=== PATIENT | female | born 1970 | race Caucasian/White ===

== ENCOUNTER 2016-06-19 06:02 | Emergency (ER) | payer SELFPAY ==
[~2016-06-19] VITALS: Ht 172.7 cm; Wt 97.7 kg
[~2016-06-19 06:02] MED LIST: LEXA10TA PO
[2016-06-19] MEDS ORDERED: SODIUM CHLOR 0.9% 1000 ML INJ 1,000 ML IV SCH (06:07)
[2016-06-19] MEDS ORDERED: SODIUM CHLORIDE 0.9% FLUSH 10 ML FLUSH IVF PRN (06:15)
[2016-06-19] MEDS ORDERED: CLON.5 PO (06:24)
[2016-06-19 06:25] VITALS: O2SAT 98
--- NOTE | 2016-06-19 06:27 | PD ---
HPI Chief Complaint: OD/ Ingestion Time Seen by Provider: 06:07 Travel History International Travel<30 days: No Contact w/Intl Traveler<30days: No Traveled to known affect area: No History of Present Illness HPI The patient is a 45-year-old female that apparently overdosed on alcohol and 10 Flexeril about 24 hours ago. She stated she had a bad day. She apparently does have a history of depression. [facility] Past Medical History Depression: Yes Diminished Hearing: No Hypertension: Yes : 1 Para: 0 Past Surgical History Gynecologic Surgery: Yes (UTERINE ABLATION) Tonsillectomy: Yes Other Surgery: Yes (CERVICAL BIOPSY) Social History Alcohol Use: Yes (1/2 bottle daily, trying to quit.) Tobacco Use: Yes (1PPD) Substance Use: No (ALCOHOL) Allergies-Medications (Allergen,Severity, Reaction): Coded Allergies: ANTIHISTAMINE DRUGS (Verified Allergy, Severe, 06/19/16) Latex (Verified Allergy, Severe, Rash, 06/19/16) Penicillin (Verified Allergy, Severe, 06/19/16) Sulfa (Verified Allergy, Severe, Rash, 06/19/16) Reported Meds & Prescriptions Reported Meds & Active Scripts Active Reported Klonopin (Clonazepam) 0.5 Mg Tab 0.5 Mg PO TID Lexapro (Escitalopram Oxalate) 10 Mg Tab 10 Mg PO DAILY Review of Systems Except as stated in HPI: all other systems reviewed are Neg Physical Exam Narrative GENERAL: The patient is alert but slightly lethargic, oriented 3 and answers questions fairly quickly and appropriately. Her vital signs are normal. SKIN: Focused skin assessment warm/dry. HEAD: Atraumatic. Normocephalic. EYES: Pupils equal and round. No scleral icterus. No injection or drainage. ENT: No nasal bleeding or discharge. Mucous membranes pink and moist. NECK: Trachea midline. No JVD. CARDIOVASCULAR: Regular rate and rhythm. No murmur appreciated. RESPIRATORY: No accessory muscle use. Clear to auscultation. Breath sounds equal bilaterally. GASTROINTESTINAL: Abdomen soft, non-tender, nondistended. Hepatic and splenic margins not palpable. MUSCULOSKELETAL: No obvious deformities. No clubbing. No cyanosis. No edema. NEUROLOGICAL: Awake and alert. No obvious cranial nerve deficits. Motor grossly within normal limits. Normal speech. PSYCHIATRIC: Appropriate mood and affect; insight and judgment normal. Data Data Last Documented VS Vital Signs Date Time Temp Pulse Resp B/P Pulse Ox O2 Delivery O2 Flow Rate FiO2 06/19/16 06:30 83 98 Nasal Cannula 2 06/19/16 06:28 16 133/78 Orders Electrocardiogram (06/19/16 06:07) Complete Blood Count With Diff (06/19/16 06:07) Comprehensive Metabolic Panel (06/19/16 06:07) Creatine Kinase (Cpk) (06/19/16 06:07) Troponin I (06/19/16 06:07) Urinalysis - C+S If Indicated (06/19/16 06:07) Chest, Single Ap (06/19/16 06:07) Ecg Monitoring (06/19/16 06:07) Iv Access Insert/Monitor (06/19/16 06:07) Oximetry (06/19/16 06:07) Sodium Chloride 0.9% Flush (Ns Flush) (06/19/16 06:15) Sodium Chlor 0.9% 1000 Ml Inj (Ns 1000 M (06/19/16 06:07) Drug Screen, Random Urine (06/19/16 06:07) Alcohol (Ethanol) (06/19/16 06:07) Tylenol (Acetaminophen) (06/19/16 06:07) Beta Hcg (Quant/Titer) (06/19/16 06:07) Salicylates (Aspirin) (06/19/16 06:21) Urinary Catheter Insert/Apply (06/19/16 06:27) Labs Laboratory Tests Test 06/19/16 06/19/16 06:13 06:20 White Blood Count 9.8 TH/MM3 Red Blood Count 4.70 MIL/MM3 Hemoglobin 14.5 GM/DL Hematocrit 43.1 % Mean Corpuscular Volume 91.7 FL Mean Corpuscular Hemoglobin 30.8 PG Mean Corpuscular Hemoglobin 33.6 % Concent Red Cell Distribution Width 13.2 % Platelet Count 217 TH/MM3 Mean Platelet Volume 7.9 FL Neutrophils (%) (Auto) 75.6 % Lymphocytes (%) (Auto) 17.2 % Monocytes (%) (Auto) 6.2 % Eosinophils (%) (Auto) 0.5 % Basophils (%) (Auto) 0.5 % Neutrophils # (Auto) 7.4 TH/MM3 Lymphocytes # (Auto) 1.7 TH/MM3 Monocytes # (Auto) 0.6 TH/MM3 Eosinophils # (Auto) 0.0 TH/MM3 Basophils # (Auto) 0.0 TH/MM3 CBC Comment DIFF FINAL Differential Comment Sodium Level 140 MEQ/L Potassium Level 3.9 MEQ/L Chloride Level 104 MEQ/L Carbon Dioxide Level 28.0 MEQ/L Anion Gap 8 MEQ/L Blood Urea Nitrogen 15 MG/DL Creatinine 0.89 MG/DL Estimat Glomerular Filtration 69 ML/MIN Rate Random Glucose 84 MG/DL Calcium Level 9.5 MG/DL Total Bilirubin 0.4 MG/DL Aspartate Amino Transf 8 U/L (AST/SGOT) Alanine Aminotransferase 25 U/L (ALT/SGPT) Total Protein 7.1 GM/DL Albumin 3.4 GM/DL Ethyl Alcohol Level LESS THAN 3 MG/DL Urine Collection Type CATH Urine Color YELLOW Urine Turbidity CLEAR Urine pH 5.5 Urine Specific [place] 1.013 Urine Protein NEG mg/dL Urine Glucose (UA) NEG mg/dL Urine Ketones NEG mg/dL Urine Occult Blood NEG Urine Nitrite NEG Urine Bilirubin NEG Urine Leukocyte Esterase NEG Urine Squamous Epithelial 0-5 /hpf Cells Urine Amorphous Sediment Urine Mucus OCC /lpf Microscopic Urinalysis Comment CULT NOT INDICATED Urine Barbiturates Screen NEG Urine Amphetamines Screen NEG Urine Benzodiazepines Screen NEG Urine Cocaine Screen NEG MDM Medical Decision Making Medical Screen Exam Complete: Yes Emergency Medical Condition: Yes Medical Record Reviewed: Yes Interpretation(s) The EKG shows normal sinus rhythm with normal QRS duration and no sign of any Tri-Cyclic overdose. Differential Diagnosis Major depression, tricyclic overdose, Tylenol overdose, salicylate overdose, alcohol overdose Narrative Course Poison control was called and they wanted an EKG 2 hours after the initial EKG. The initial EKG was essentially normal regarding tricyclic overdose. The second EKG will be done at 0800. It is now 709 and the patient is transferred to Stan Chaves MD June 19, 2016 06:27
[2016-06-19 06:28] VITALS: BP 133/78; PULSE 94; RESP 16; O2SAT 94
[2016-06-19 06:28] LABS: CHLORIDE 104 MEQ/L (98-107); POTASSIUM 3.9 MEQ/L (3.5-5.1); SODIUM (NA) 140 MEQ/L (136-145)
[2016-06-19 06:32] LABS: ANION GAP 8 MEQ/L (5-15); BLOOD UREA NITROGEN 15 MG/DL (7-18)
[2016-06-19 06:32] LABS: BLOOD, URINE NEG (NEG); GLUCOSE,URINE NEG (NEG); KETONE, URINE NEG (NEG); NITRITE,URINE NEG (NEG); PH, URINE 5.5 (5.0-8.5)
[2016-06-19 06:34] LABS: AUTOMATED NEUTROPHIL # 7.4 TH/MM3 (1.8-7.7); BASOPHIL % 0.5 % (0.0-2.0); EOSINOPHIL % 0.5 % (0.0-4.0); HEMATOCRIT 43.1 % (35.0-46.0); HEMO FLAGS DIFF FINAL; LYMPH % 17.2 % (9.0-44.0); LYMPHOCYTE # 1.7 TH/MM3 (1.0-4.8); MEAN CELL VOLUME 91.7 FL (80.0-100.0); MEAN CORPUSCULAR HEMOGLOBIN 30.8 PG (27.0-34.0); MEAN CORPUSCULAR HGB CONC 33.6 % (32.0-36.0); MONO % 6.2 % (0.0-8.0); NEUT % 75.6 % (16.0-70.0); PLATELET COUNT 217 TH/MM3 (150-450); RED CELL DISTRIBUTION WIDTH 13.2 % (11.6-17.2); WHITE BLOOD COUNT 9.8 TH/MM3 (4.0-11.0)
[2016-06-19 06:35] LABS: ALT (GPT) 25 U/L (10-53); AST (GOT) 8 U/L (15-37); GLOMERULAR FILTRATION RATE 69 ML/MIN (>89)
[2016-06-19 06:37] LABS: TOTAL BILIRUBIN ADULT 0.4 MG/DL (0.2-1.0)
[2016-06-19 06:38] LABS: ALKALINE PHOSPHATASE 75 U/L (45-117)
[2016-06-19 06:40] LABS: BETA HCG QUANT LESS THAN 1 MIU/ML (0-5)
[2016-06-19 06:46] LABS: METHOD OF COLLECTION CATH; URINE COLOR YELLOW (YELLW/STRAW)
[2016-06-19 06:47] LABS: MUCUS URINE OCC /lpf (OCC); SQUAMOUS EPITHELIAL CELL URINE 0-5 /hpf (0-5)
[2016-06-19 06:48] LABS: COCAINE, URINE NEG (NEG); COMMENT (UR) CULT NOT INDICATED; CULTURE IF INDICATED CULT NOT INDICATED
[2016-06-19 06:56] LABS: AMPHETAMINE, URINE NEG (NEG)
[2016-06-19 06:58] LABS: BARBITURATES, URINE NEG (NEG)
[2016-06-19 07:15] VITALS: BP 143/96; PULSE 84; RESP 18; O2SAT 100
--- NOTE | 2016-06-19 07:32 | RADHPO ---
EXAM DATE/TIME: 06/19/2016 06:47 [facility] COMPARISON: No previous studies available for comparison. INDICATIONS : Syncope, possible overdose. MEDICAL HISTORY : None. SURGICAL HISTORY : None. ENCOUNTER: Initial ACUITY: 1 day PAIN SCORE: 0/10 LOCATION: Bilateral chest FINDINGS: A single view of the chest demonstrates the lungs to be symmetrically aerated without evidence of mas s, infiltrate or effusion. The cardiomediastinal contours are unremarkable. Osseous structures are intact. CONCLUSION: No acute disease. Theodore Garcia MD FACR on June 19, 2016 at 7:30 Board Certified Radiologist. This report was verified electronically.
[2016-06-19 07:35] LABS: CREATINE KINASE 26 U/L (26-192)
[2016-06-19 07:40] LABS: ACETAMINOPHEN 3.4 MCG/ML (10.0-30.0)
[2016-06-19 08:27] VITALS: BP 136/84; PULSE 78; RESP 18; O2SAT 98
--- NOTE | 2016-06-19 09:35 | PD ---
Data Data Last Documented VS Vital Signs Date Time Temp Pulse Resp B/P Pulse Ox O2 Delivery O2 Flow Rate FiO2 06/19/16 08:27 78 18 136/84 98 Room Air 06/19/16 07:15 2 Orders Electrocardiogram (06/19/16 06:07) Complete Blood Count With Diff (06/19/16 06:07) Comprehensive Metabolic Panel (06/19/16 06:07) Creatine Kinase (Cpk) (06/19/16 06:07) Troponin I (06/19/16 06:07) Urinalysis - C+S If Indicated (06/19/16 06:07) Chest, Single Ap (06/19/16 06:07) Ecg Monitoring (06/19/16 06:07) Iv Access Insert/Monitor (06/19/16 06:07) Oximetry (06/19/16 06:07) Sodium Chloride 0.9% Flush (Ns Flush) (06/19/16 06:15) Sodium Chlor 0.9% 1000 Ml Inj (Ns 1000 M (06/19/16 06:07) Drug Screen, Random Urine (06/19/16 06:07) Alcohol (Ethanol) (06/19/16 06:07) Tylenol (Acetaminophen) (06/19/16 06:07) Beta Hcg (Quant/Titer) (06/19/16 06:07) Salicylates (Aspirin) (06/19/16 06:21) Urinary Catheter Insert/Apply (06/19/16 06:27) Psych Screen (06/19/16 08:30) Electrocardiogram (06/19/16 07:58) Labs Laboratory Tests Test 06/19/16 06/19/16 06/19/16 06:13 06:20 06:30 White Blood Count 9.8 TH/MM3 Red Blood Count 4.70 MIL/MM3 Hemoglobin 14.5 GM/DL Hematocrit 43.1 % Mean Corpuscular Volume 91.7 FL Mean Corpuscular Hemoglobin 30.8 PG Mean Corpuscular Hemoglobin 33.6 % Concent Red Cell Distribution Width 13.2 % Platelet Count 217 TH/MM3 Mean Platelet Volume 7.9 FL Neutrophils (%) (Auto) 75.6 % Lymphocytes (%) (Auto) 17.2 % Monocytes (%) (Auto) 6.2 % Eosinophils (%) (Auto) 0.5 % Basophils (%) (Auto) 0.5 % Neutrophils # (Auto) 7.4 TH/MM3 Lymphocytes # (Auto) 1.7 TH/MM3 Monocytes # (Auto) 0.6 TH/MM3 Eosinophils # (Auto) 0.0 TH/MM3 Basophils # (Auto) 0.0 TH/MM3 CBC Comment DIFF FINAL Differential Comment Sodium Level 140 MEQ/L Potassium Level 3.9 MEQ/L Chloride Level 104 MEQ/L Carbon Dioxide Level 28.0 MEQ/L Anion Gap 8 MEQ/L Blood Urea Nitrogen 15 MG/DL Creatinine 0.89 MG/DL Estimat Glomerular Filtration 69 ML/MIN Rate Random Glucose 84 MG/DL Calcium Level 9.5 MG/DL Total Bilirubin 0.4 MG/DL Aspartate Amino Transf 8 U/L (AST/SGOT) Alanine Aminotransferase 25 U/L (ALT/SGPT) Alkaline Phosphatase 75 U/L Total Creatine Kinase 26 U/L Troponin I LESS THAN 0.02 NG/ML Total Protein 7.1 GM/DL Albumin 3.4 GM/DL Human Chorionic Gonadotropin, LESS THAN 1 Quant MIU/ML Acetaminophen Level 3.4 MCG/ML Ethyl Alcohol Level LESS THAN 3 MG/DL Urine Collection Type CATH Urine Color YELLOW Urine Turbidity CLEAR Urine pH 5.5 Urine Specific [place] 1.013 Urine Protein NEG mg/dL Urine Glucose (UA) NEG mg/dL Urine Ketones NEG mg/dL Urine Occult Blood NEG Urine Nitrite NEG Urine Bilirubin NEG Urine Leukocyte Esterase NEG Urine Squamous Epithelial 0-5 /hpf Cells Urine Amorphous Sediment Urine Mucus OCC /lpf Microscopic Urinalysis Comment CULT NOT INDICATED Urine Opiates Screen POS Urine Barbiturates Screen NEG Urine Amphetamines Screen NEG Urine Benzodiazepines Screen NEG Urine Cocaine Screen NEG Urine Cannabinoids Screen NEG Salicylates Level 4.0 MG/DL MDM Supervised Visit with JENNIFER: Yes Narrative Course This case is checked out to me by Dr. Nation at 7 AM I reviewed the entirety of the workup and reevaluated the patient Patient took Flexeril yesterday evening. She is slowly and steadily improving according to her and her at bedside. She is ambulatory now Her CBC and metabolic profiles and alcohol level are normal as are Tylenol and aspirin levels Tox screen positive for opiate only She is agreeable to go to the main ER for psychiatric evaluation She does not need Ventura act. She is agreeable I've ordered psych screen Report is been called to the psychiatric area and when place is available she will be taken there by security Her vitals are good and she is medically stable Was control recommended a repeat EKG at 8 AM which was done. It looks okay Diagnosis Primary Impression: Overdose Qualified Code: T50.904A - Overdose, undetermined intent, initial encounter Additional Impression: Depression Qualified Code: F32.9 - Depression, unspecified depression type Aubrey Browning MD June 19, 2016 09:34
[2016-06-19 10:36] VITALS: BP 118/73; PULSE 93; RESP 18; TEMP 99; O2SAT 97
[2016-06-19] MEDS ORDERED: CYCL1TAB29 PO (13:04)
[2016-06-19 14:00] VITALS: BP 114/58; PULSE 95; RESP 18
--- NOTE | 2016-06-19 14:47 | EKG ---
Date Performed: 06/19/2016 Time Performed: 07:58:00 PTAGE: 45 years EKG: Sinus rhythm . Poor R wave progression - probable normal variant Borderline ECG PREVIOUS TRACING : 06/19/2016 06.04 Since previous tracing, no significant change noted DOCTOR: Alphonse Triplett Interpretating Date/Time 06/19/2016 14:42:36
--- NOTE | 2016-06-19 14:47 | EKG ---
Date Performed: 06/19/2016 Time Performed: 06:04:06 PTAGE: 45 years EKG: Sinus rhythm . Possible left atrial abnormality Borderline ECG NO PREVIOUS TRACING DOCTOR: Alphonse Triplett Interpretating Date/Time 06/19/2016 14:42:27
--- NOTE | 2016-06-19 17:33 | PD ---
History of Present Illness Chief Complaint: OD/ Ingestion Time Seen by Provider: 17:30 Travel History International Travel<30 Days: No Contact w/Intl Traveler<30days: No Known affected area: No Legal Status Legal Status: Voluntary History of Present Illness: Patient seen on a voluntary basis after she was sent here from [place]. Currently denies suicidal or homicidal ideation, plan or intent. States she was "forced into coming here by the physician at [facility]. She was reportedly threatened with Ventura act if she did not present herself for evaluation. She is calm and pleasant and cooperative and realizes that she made a mistake and threatening suicide and taking too many Flexeril. She is currently in AA and plans to work step for with her sponsor. Her vouch for her safety. At this time, this physician feels it would only antagonize the patient to Ventura act her or admit her. Patient is verbally michele for safety. out of work. Patient does not like the people she works with but she has been in the same [employer] position for over 20 years. PFSH Past Medical History Medical History: Denies Significant Hx Depression: Yes Diminished Hearing: No Hypertension: Yes Tetanus Vaccination: < 5 Years ?: Not : 1 Para: 0 Past Surgical History Gynecologic Surgery: Yes (UTERINE ABLATION) Tonsillectomy: Yes Other Surgery: Yes (CERVICAL BIOPSY) Psychiatric History Psychiatric History Hx Psychiatric Treatment: CURRENTLY BEING TREATED FOR DEPRESSION AND ANXIETY History of Inpatient Treatment: No Guns or firearms in home: No Social History Hx Alcohol Use: Yes (1/2 bottle daily, trying to quit.) Hx Tobacco Use: Yes (1PPD) Substance Use Type: Alcohol Other Substances Used: HISTORY OF ALCOHOL ABUSE Hx of Substance Use Treatment: No Allergies-Medications (Allergen,Severity, Reaction): Coded Allergies: ANTIHISTAMINE DRUGS (Verified Allergy, Severe, 06/19/16) Latex (Verified Allergy, Severe, Rash, 06/19/16) Penicillin (Verified Allergy, Severe, 06/19/16) Sulfa (Verified Allergy, Severe, Rash, 06/19/16) Reported Meds & Prescriptions Reported Meds & Active Scripts Active Reported Flexeril (Cyclobenzaprine HCl) 10 Mg Tab 10 Mg PO TID Klonopin (Clonazepam) 0.5 Mg Tab 0.5 Mg PO TID Lexapro (Escitalopram Oxalate) 10 Mg Tab 20 Mg PO DAILY Review of Systems Except as stated in HPI: all other systems reviewed are Neg Exam Alert: Yes [place]: Person, Place, Date, Situation Mood: Calm Affect: Appropriate Speech: Clear, Logical Eye Contact: Normal Memory Intact: Immediate, Recent, Remote Insight/Judgement Adequate MDM Medical Decision Making Medical Record Reviewed: Yes Assessment/Plan Patient willing to seek follow up care and does not meet criteria for Ventura act or inpatient psychiatric hospitalization, in this physician's opinion. She is calm pleasant and cooperative. No psychotic symptoms or suicidal or homicidal ideation. Cognition is intact. Orders Electrocardiogram (06/19/16 06:07) Complete Blood Count With Diff (06/19/16 06:07) Comprehensive Metabolic Panel (06/19/16 06:07) Creatine Kinase (Cpk) (06/19/16 06:07) Troponin I (06/19/16 06:07) Urinalysis - C+S If Indicated (06/19/16 06:07) Chest, Single Ap (06/19/16 06:07) Ecg Monitoring (06/19/16 06:07) Iv Access Insert/Monitor (06/19/16 06:07) Oximetry (06/19/16 06:07) Sodium Chloride 0.9% Flush (Ns Flush) (06/19/16 06:15) Sodium Chlor 0.9% 1000 Ml Inj (Ns 1000 M (06/19/16 06:07) Drug Screen, Random Urine (06/19/16 06:07) Alcohol (Ethanol) (06/19/16 06:07) Tylenol (Acetaminophen) (06/19/16 06:07) Beta Hcg (Quant/Titer) (06/19/16 06:07) Salicylates (Aspirin) (06/19/16 06:21) Urinary Catheter Insert/Apply (06/19/16 06:27) Psych Screen (06/19/16 08:30) Electrocardiogram (06/19/16 07:58) Diet Regular Basic (06/19/16 Lunch) Diet Regular Basic (06/19/16 Dinner) Results Vital Signs Date Time Temp Pulse Resp B/P Pulse Ox O2 Delivery O2 Flow Rate FiO2 06/19/16 14:00 95 18 114/58 Room Air 06/19/16 10:36 99.0 93 18 118/73 97 Room Air 06/19/16 08:27 78 18 136/84 98 Room Air 06/19/16 07:15 84 18 143/96 100 Nasal Cannula 2 06/19/16 06:30 83 98 Nasal Cannula 2 06/19/16 06:28 94 16 133/78 94 06/19/16 06:25 98 Nasal Cannula 2 Laboratory Tests Test 06/19/16 06/19/16 06/19/16 06:13 06:20 06:30 White Blood Count 9.8 Red Blood Count 4.70 Hemoglobin 14.5 Hematocrit 43.1 Mean Corpuscular Volume 91.7 Mean Corpuscular Hemoglobin 30.8 Mean Corpuscular Hemoglobin 33.6 Concent Red Cell Distribution Width 13.2 Platelet Count 217 Mean Platelet Volume 7.9 Neutrophils (%) (Auto) 75.6 Lymphocytes (%) (Auto) 17.2 Monocytes (%) (Auto) 6.2 Eosinophils (%) (Auto) 0.5 Basophils (%) (Auto) 0.5 Neutrophils # (Auto) 7.4 Lymphocytes # (Auto) 1.7 Monocytes # (Auto) 0.6 Eosinophils # (Auto) 0.0 Basophils # (Auto) 0.0 CBC Comment DIFF FINAL Differential Comment Sodium Level 140 Potassium Level 3.9 Chloride Level 104 Carbon Dioxide Level 28.0 Anion Gap 8 Blood Urea Nitrogen 15 Creatinine 0.89 Estimat Glomerular Filtration 69 Rate Random Glucose 84 Calcium Level 9.5 Total Bilirubin 0.4 Aspartate Amino Transf 8 (AST/SGOT) Alanine Aminotransferase 25 (ALT/SGPT) Alkaline Phosphatase 75 Total Creatine Kinase 26 Troponin I LESS THAN 0.02 Total Protein 7.1 Albumin 3.4 Human Chorionic Gonadotropin, LESS THAN 1 Quant Acetaminophen Level 3.4 Ethyl Alcohol Level LESS THAN 3 Urine Collection Type CATH Urine Color YELLOW Urine Turbidity CLEAR Urine pH 5.5 Urine Specific [place] 1.013 Urine Protein NEG Urine Glucose (UA) NEG Urine Ketones NEG Urine Occult Blood NEG Urine Nitrite NEG Urine Bilirubin NEG Urine Leukocyte Esterase NEG Urine Squamous Epithelial 0-5 Cells Urine Amorphous Sediment Urine Mucus OCC Microscopic Urinalysis Comment CULT NOT INDICATED Urine Opiates Screen POS Urine Barbiturates Screen NEG Urine Amphetamines Screen NEG Urine Benzodiazepines Screen NEG Urine Cocaine Screen NEG Urine Cannabinoids Screen NEG Salicylates Level 4.0 Diagnosis Primary Impression: Acute adjustment disorder with mixed disturbance of emotions and conduct Lamont Mcgraw MD June 19, 2016 17:33
== END 2016-06-19 18:16 | disposition home or self-care (01) ==
LOC: PHED 06:02 → NEPJ 18:16
DX: T48.1X4A Poisoning by skeletal muscle relaxants [neuromuscular blocking agents], undetermined, initial encounter (principal); F41.8 Other specified anxiety disorders; F43.25 Adjustment disorder with mixed disturbance of emotions and conduct; I10 Essential (primary) hypertension; F17.210 Nicotine dependence, cigarettes, uncomplicated; Z88.0 Allergy status to penicillin; Z88.2 Allergy status to sulfonamides; F10.10 Alcohol abuse, uncomplicated; R94.31 Abnormal electrocardiogram [ECG] [EKG]
CPT/HCPCS: 51702; 71010; 80053; 80307; 81001; 82550; 84484; 84702; 85025; 93005; 99284; J7030; 99281

== ENCOUNTER 2017-04-07 17:06 | Emergency (ER) | payer OTHER ==
[~2017-04-07] VITALS: Ht 172.7 cm; Wt 102.0 kg
[~2017-04-07 17:06] MED LIST changes: +CLON.5 PO; +CYCL10TA PO
[2017-04-07 17:12] VITALS: BP 151/77; PULSE 84; RESP 16; TEMP 98.8; O2SAT 99
[2017-04-07] MEDS ORDERED: ACETAMINOPHEN/HYDROcodone 325 MG/5 MG TAB PO ONE (17:45)
[2017-04-07] MEDS ORDERED: KETOROLAC TROMETHAMINE 60 MG/2 ML (IM) VIAL IM ONE (17:45)
--- NOTE | 2017-04-07 18:22 | RADRPT ---
EXAM DATE/TIME: 04/07/2017 17:46 [facility] COMPARISON: HIP RIGHT (AP&LAT 2/3VWS) WO AP PELVIS, April 07, 2017, 18:07. INDICATIONS : Pain post fall. MEDICAL HISTORY : None. SURGICAL HISTORY : None. ENCOUNTER: Initial ACUITY: 3 weeks PAIN SCORE: 10/10 LOCATION: Left Hip and pelvis. FINDINGS: There is patchy sclerosis, subchondral lucency and partial collapse of the left femoral head characte ristic of avascular necrosis. This is present bilaterally. No acute fractures are seen. 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 Richi Braun MD on April 07, 2017 at 18:20 Board Certified Radiologist. This report was verified electronically.
--- NOTE | 2017-04-07 18:23 | RADRPT ---
EXAM DATE/TIME: 04/07/2017 18:07 [facility] COMPARISON: HIP LEFT (AP&LAT 2/3VWS) W AP PELVIS, April 07, 2017, 17:46. INDICATIONS : Pain post fall. MEDICAL HISTORY : None. SURGICAL HISTORY : None. ENCOUNTER: Initial ACUITY: 3 weeks PAIN SCORE: 10/10 LOCATION: Right Hip and pelvis. FINDINGS: There are imaging findings characteristic of avascular necrosis of the right femoral head with patchy sclerosis, subchondral lucency and concavity along the surface of the femoral head. There is osteoph yte formation of the femoral head laterally. No displaced fracture fragments are seen. CONCLUSION: Right femoral head AVN. Richi Braun MD on April 07, 2017 at 18:21 Board Certified Radiologist. This report was verified electronically.
[2017-04-07 18:44] VITALS: RESP 16
--- NOTE | 2017-04-07 18:48 | RADRPT ---
EXAM DATE/TIME: 04/07/2017 17:50 [facility] COMPARISON: No previous studies available for comparison. INDICATIONS : Back pain post trauma 1 week, fall. RADIATION DOSE: 12.45 CTDIvol (mGy) MEDICAL HISTORY : Hypertension. ETOH, Previous OD SURGICAL HISTORY : Tonsillectomy. Uternine ablation, cervical biopsy ENCOUNTER: Initial ACUITY: 3 weeks PAIN SCALE: 8/10 LOCATION: Bilateral low back TECHNIQUE: Volumetric scanning of the lumbar spine was performed. Multiplanar reconstructions in the sagittal, coronal and oblique axial planes were performed. Using automated exposure control and adjustment of the mA and/or kV according to patient size, radiation dose was kept as low as reasonably achievable t o obtain optimal diagnostic quality images. DICOM format image data is available electronically for review and comparison. FINDINGS: Alignment is normal. Vacuum disc phenomenon and mild anterior osteophyte formation at L3-4. Mild disc space narrowing at L3-4. There is a prominent Schmorl node at the superior endplate of L4 identified and a limbus vertebra is seen L4. There are no compression deformities. Mild multilevel osteophyte f ormation. Mild diffuse disc bulge at L3-4 without canal or foraminal narrowing. Mild diffuse disc bul ge at L4-5 and moderate facet and ligamentum flavum hypertrophy without canal or foraminal narrowing. CONCLUSION: Mild degenerative changes are noted as above. Richi Braun MD on April 07, 2017 at 18:45 Board Certified Radiologist. This report was verified electronically.
[2017-04-07] MEDS ORDERED: PRED20 PO (18:50)
[2017-04-07] MEDS ORDERED: HYDR-3516 PO (18:50)
[2017-04-07] MEDS ORDERED: DICL75TA PO (18:50)
--- NOTE | 2017-04-07 18:55 | PD ---
HPI Chief Complaint: Back/ Neck Pain or Injury Time Seen by Provider: 17:27 Travel History International Travel<30 days: No Contact w/Intl Traveler<30days: No Traveled to known affect area: No History of Present Illness HPI 46-year-old female that presents to the ED for evaluation of bilateral hip pain and buttocks pain after a fall about a week ago. Per patient she's been dealing with some back problems for about a year. Per patient she's been getting injections in the past with minimal discomfort. Per patient is not getting better. Per patient about a week ago she fell into her buttocks. She is having pain ever since. Per patient is more significant. She has not taken anything for this. Per patient gets worse with weightbearing as well as with movement. She has not seen her back specialist for this. She denies any other medical issues. No head injury or loss of consciousness. No surgeries to the back but she states that she used to get epidural shoulders but she has not gotten one in about a year. Multiple allergies to different medications. Other medical issues. No urinary or bowel movement issues. Pain per patient is a out of 10. More to the hips bilaterally. PFSH Past Medical History Depression: Yes Diminished Hearing: No Hypertension: Yes Tetanus Vaccination: < 5 Years ?: Not LMP: UTERINE ABLATION : 1 Para: 0 Past Surgical History Gynecologic Surgery: Yes (UTERINE ABLATION) Tonsillectomy: Yes Other Surgery: Yes (CERVICAL BIOPSY) Social History Alcohol Use: Yes (1/2 bottle daily, trying to quit.) Tobacco Use: Yes (1PPD) Substance Use: No (DENIED) Allergies-Medications (Allergen,Severity, Reaction): Coded Allergies: Sulfa (Sulfonamide Antibiotics) (Unverified Allergy, Severe, Rash, 04/07/17) latex (Unverified Allergy, Severe, Rash, 04/07/17) penicillin G (Unverified Allergy, Severe, 04/07/17) Uncoded Allergies: ANTIHISTAMINE (Allergy, Severe, ., 04/07/17) Reported Meds & Prescriptions Reported Meds & Active Scripts Active Prednisone 20 Mg Tab 20 Mg PO BID 5 Days Hydrocodone-Acetamin 5-325 mg (Hydrocodone/Acetaminophen) 5 Mg-325 Mg Tablet 1 Tab PO Q6HR PRN Diclofenac Sodium DR (Diclofenac Sodium) 75 Mg Tabdr 75 Mg PO BID PRN Reported Klonopin (Clonazepam) 0.5 Mg Tab 0.5 Mg PO TID Lexapro (Escitalopram Oxalate) 10 Mg Tab 20 Mg PO DAILY Review of Systems Except as stated in HPI: all other systems reviewed are Neg Physical Exam Narrative GENERAL: SKIN: Warm and dry. HEAD: Atraumatic. Normocephalic. EYES: Pupils equal and round. No scleral icterus. No injection or drainage. ENT: No nasal bleeding or discharge. Mucous membranes pink and moist. Tongue is midline. No uvula deviation. NECK: Trachea midline. No JVD. CARDIOVASCULAR: Regular rate and rhythm. RESPIRATORY: No accessory muscle use. Clear to auscultation. Breath sounds equal bilaterally. GASTROINTESTINAL: Abdomen soft, non-tender, nondistended. Hepatic and splenic margins not palpable. MUSCULOSKELETAL: Extremities without clubbing, cyanosis, or edema. No obvious deformities. Full range of motion of the upper and lower extremities bilaterally. 2+ pulses bilaterally. No lumbar, thoracic, cervical spine tenderness to palpation. Most of the pain reproducible with touch on the hips bilaterally. NEUROLOGICAL: Awake and alert. No obvious cranial nerve deficits. Motor grossly within normal limits. Five out of 5 muscle strength in the arms and legs. Normal speech. PSYCHIATRIC: Appropriate mood and affect; insight and judgment normal. Data Data Last Documented VS Vital Signs Date Time Temp Pulse Resp B/P (MAP) Pulse Ox O2 Delivery O2 Flow Rate FiO2 04/07/17 17:12 98.8 84 16 151/77 (101) [address] Lumb Spine W/O Contrast (04/07/17 ) Hip, Uni(Ap&Lat) W Ap Pelvis (04/07/17 ) Hip, Uni(Ap&Lat) Wo Ap Pelvis (04/07/17 ) Ketorolac Inj (Toradol Inj) (04/07/17 17:45) Acetamin-Hydrocod 325-5 Mg ([place] 5-325 (04/07/17 17:45) MDM Medical Decision Making Medical Screen Exam Complete: Yes Emergency Medical Condition: Yes Medical Record Reviewed: Yes Interpretation(s) Last Impressions Hip and Pelvis X-Ray 04/07/17 0000 Signed Impressions: Service Date/Time: Friday, April 07, 2017 17:46 - CONCLUSION: Bilateral avascular necrosis of the femoral heads. Richi Braun MD Hip X-Ray 04/07/17 0000 Signed Impressions: Service Date/Time: Friday, April 07, 2017 18:07 - CONCLUSION: Right femoral head AVN. Richi Braun MD CT of the lumbar spine shows some chronic changes but no sign of acute disease Differential Diagnosis Fracture versus sprain versus strain versus herniated disc versus avascular necrosis Narrative Course 46-year-old female that presents to the ED for evaluation of bilateral hip pain and back pain. Patient was properly examined and was found to have signs and symptoms of unclear etiology but possible muscle scale. Patient is neurovascular intact. No sign of nerve involvement. X-rays and CT were done. X-rays did show what appears to be a vascular necrosis. Unclear etiology of it. She is somewhat overweight but unclear she's been taking some steroids to could've caused this. This could also be chronic. The lumbar spine itself appears to be well. At this time this is likely the cause of the pain. Patient was console on this. Patient is to follow with orthopedic doctor for further management of this. Patient was given a prescription for prednisone, Lortab and diclofenac sodium to use as needed. Close follow with orthopedic surgeon. See ED worsening symptoms. Diagnosis Primary Impression: AVN (avascular necrosis of bone) Additional Impression: Hip pain, bilateral Referrals: Bentley Millard Jr., MD Patient Instructions: General Instructions, Narcotic given in the ED Additional Instructions: Take medications as prescribed. Follow-up with PCP. See ED for any worsening symptoms. Do not drink or drive while taking pain medication. Apply ice or heat as needed for pain Med/Other Pt SpecificInfo: Prescription(s) given Scripts Prednisone (Prednisone) 20 Mg Tab 20 MG PO BID for 5 Days, #10 TAB 0 Refills Prov: Juanpablo Alonzo MD 04/07/17 Hydrocodone/Acetaminophen (Hydrocodone-Acetamin 5-325 mg) 5 Mg-325 Mg Tablet 1 TAB PO Q6HR Y for PAIN SCALE 1 TO 10, #10 Prov: Juanpablo Alonzo MD 04/07/[address] (Diclofenac Sodium DR) 75 Mg Tabdr 75 MG PO BID Y for PAIN SCALE 1 TO 10, #20 TAB 0 Refills Prov: Juanpablo Alonzo MD 04/07/17 Disposition: 01 DISCHARGE HOME Condition: Stable Vinayak Bonilla Apr 07, 2017 18:55
== END 2017-04-07 19:39 | disposition home or self-care (01) ==
LOC: PHEFT 17:06
DX: M87.851 Other osteonecrosis, right femur (principal); F32.9 Major depressive disorder, single episode, unspecified; I10 Essential (primary) hypertension; F17.200 Nicotine dependence, unspecified, uncomplicated
CPT/HCPCS: 72131; 73502; 96372; 99284; J1885

== ENCOUNTER → 2017-05-07 | Outpatient (CLI) | payer BC ==
[~2017-05-07] MED LIST changes: -CYCL10TA PO; +DICL75TA PO; +HYDR-3516 PO; +PRED20 PO
--- NOTE | 2017-05-07 09:15 | EKG ---
Date Performed: 05/07/2017 Time Performed: 08:54:06 PTAGE: 46 years EKG: Sinus rhythm NORMAL ECG PREVIOUS TRACING : 06/19/2016 07.58 Since the previous tracing, no significant change noted DOCTOR: Luis A Albarado Interpretating Date/Time 05/07/2017 09:13:38
[2017-05-07 09:29] LABS: AUTOMATED NEUTROPHIL # 5.1 TH/MM3 (1.8-7.7); BASOPHIL % 0.6 % (0.0-2.0); EOSINOPHIL # 0.1 TH/MM3 (0-0.4); EOSINOPHIL % 0.9 % (0.0-4.0); HEMOGLOBIN 14.4 GM/DL (11.6-15.3); LYMPH % 19.5 % (9.0-44.0); LYMPHOCYTE # 1.4 TH/MM3 (1.0-4.8); MEAN CELL VOLUME 92.3 FL (80.0-100.0); MEAN CORPUSCULAR HEMOGLOBIN 31.7 PG (27.0-34.0); MEAN CORPUSCULAR HGB CONC 34.4 % (32.0-36.0); MEAN PLATELET VOLUME 8.7 FL (7.0-11.0); MONO % 6.1 % (0.0-8.0); MONOCYTE # 0.4 TH/MM3 (0-0.9); NEUT % 72.9 % (16.0-70.0); PLATELET COUNT 182 TH/MM3 (150-450); RED BLOOD COUNT 4.56 MIL/MM3 (4.00-5.30); RED CELL DISTRIBUTION WIDTH 13.6 % (11.6-17.2)
== END ==
LOC: CLAB 08:19
PROVIDERS: ATTEND Orthopaedic Surgery Orthopaedic Surgery of the Spine
DX: Z01.812 Encounter for preprocedural laboratory examination (principal); Z01.810 Encounter for preprocedural cardiovascular examination; M16.0 Bilateral primary osteoarthritis of hip
CPT/HCPCS: 36415; 85025; 93005

== ENCOUNTER → 2017-07-30 | Outpatient (CLI) | payer BC | LOC: CPRE 08:58 | PROVIDERS: ATTEND Orthopaedic Surgery Orthopaedic Trauma | DX: Z01.818 Encounter for other preprocedural examination (principal) ==

== ENCOUNTER 2017-08-07 06:06 | Inpatient (IN) ==
[2017-08-07] MEDS ORDERED: Ketamine Inj 50 MG/5 ML Syringe IV.PUSH ONE (06:21)
[2017-08-07] MEDS ORDERED: Gabapentin 300 MG Capsule PO ONE (06:47)
[2017-08-07] MEDS ORDERED: Famotidine PF Inj 20 MG/2 ML Vial IV.PUSH ONE (06:47)
[2017-08-07] MEDS ORDERED: Dexamethasone Inj 20 MG/5 ML Vial IV.PUSH ONE (06:47)
[2017-08-07] MEDS ORDERED: Celecoxib 200 MG Capsule PO ONE (06:47)
[2017-08-07] MEDS ORDERED: Famotidine PF Inj 20 MG/2 ML Vial ONE (06:48)
[2017-08-07] MEDS ORDERED: Vancomycin Inj 1 GM/200 ML PIGGYBACK IV.SIG ONE (06:49)
[2017-08-07] MEDS ORDERED: ceFAZolin 2 GM Premix Inj 2 GM/50 ML PIGGYBACK IV.SIG ONE (06:52)
[2017-08-07] MEDS ORDERED: Bupivacaine/Dextrose 0.75% Inj 2 ML Ampul ONE (06:59)
[2017-08-07] MEDS ORDERED: Vancomycin Inj 1 GM/200 ML PIGGYBACK IV.SIG SCH ×2 (07:00→19:00)
[2017-08-07] MEDS ORDERED: ceFAZolin 2 GM Premix Inj 2 GM/50 ML PIGGYBACK IV.SIG SCH (07:00)
[2017-08-07] MEDS ORDERED: Bupivacaine/Epi PF 0.25% Inj 20 ML, Bupivacaine Liposo PF 1.3% Inj 20 ML, Sodium Chlor ... P-ARTICULR SCH ×2 (07:00)
[2017-08-07] MEDS ORDERED: Insulin NovoLIN Regular Correctional Sugar Inj SQ SCH (07:00)
[2017-08-07] MEDS ORDERED: Chlorhexidine 4% Topical 120 APPLIC/120 ML Bottle TOPICAL SCH (07:00)
[2017-08-07] MEDS ORDERED: SODIUM CHLOR 0.9% IV.SIG SCH (07:00)
[2017-08-07] MEDS ORDERED: Metoprolol Tartrate 25 MG Tablet PO SCH (07:00)
[2017-08-07] MEDS ORDERED: TRANEXAMIC ACID IV.SIG SCH (07:00)
[2017-08-07] MEDS ORDERED: Sodium Chlor 0.9% Inj 500 ML IV.SIG SCH (07:00)
[2017-08-07] MEDS ORDERED: Chlorhexidine Gluconate 2% 1 Pack (2 Cloths) TOPICAL SCH (07:00)
[2017-08-07 07:07] LABS: Bilirubin,Urine Negative (Negative); Clarity,Urine Clear (Clear); Color,Urine Yellow (Yellw/Straw); Glucose,Urine (UA) Negative (Negative); Leukocyte Esterase,Urine Negative (Negative); Nitrite,Urine Negative (Negative); Specific Gravity,Urine 1.016 (1.002-1.035); Squamous Epithelial Cell,Urine 1 /hpf (0-5)
--- NOTE | 2017-08-07 09:13 | P.OP ---
Date of procedure: 08/07/17 Procedure: Right total hip arthroplasty by anterior approach Anesthesia: LAURA Surgeon: Paul Bucio MD Wheel Adjuster: Yuri Forrest PA-C The surgical procedure was assisted by my physician neurosurgical physician assistant. My P.A. presence was necessary throughout this case for the manipulation and positioning of the surgical extremity. My P.A. was assisting me throughout the duration of this procedure. The skill set of a physician neurosurgical physician assistant was medically necessary to complete this procedure. During the surgical case the fire technology instructor was working at the back table and the physician neurosurgical physician assistant was directly assisting me. Estimated blood loss (mL): 300 Operation and Findings: PLAN OF ACTIVITY Weight bear as tolerated. IMPLANTS USED DePuy Corail size 12 collared stem with a size [50] Midpines Gription cup, [50/ 36] Altrx poly liner, and a [32 +1] Biolox ceramic head. DETAILS OF PROCEDURE: This patient has a long history of hip pain. Patient was found to have severe osteoarthritis. The patient had radiographic evidence of joint space narrowing with [id number] arthritis and osteophytes around the acetabulum as well as the femoral head. There was also some cystic changes. The patient failed conservative treatment with pain medications, anti-inflammatories, physical therapy, assistive devices including a cane, as well as therapeutic injection of the hip. Patient's hip arthritis was limiting his ability to ambulate and perform activities of daily living. The patient wished to proceed with surgery and informed consent was obtained. Operative site was marked. I discussed both posterior approach and anterior approach with the patient and decision was made for anterior approach. Patient was brought to OR and placed on OR table. IV sedation and general anesthesia was administered by anesthesiologist. Patient positioned on a Halima table and was given IV antibiotics. Time-out procedure was performed. The hip and thigh were prepped with alcohol followed by Hibiclens. The thigh was draped in the usual sterile fashion. Clean Air Suite was used for this procedure. The procedure began with a 5-inch incision over the anterolateral thigh. Subcutaneous tissue was dissected with Bovie. The fascia over the tensa fasciae latae was incised. Care was taken to avoid injury to the lateral femoral cutaneous nerve. The tensor muscle was retracted laterally. Sartorius was retracted medially. Retractors were now placed. The reflected head of the rectus is now elevated. A capsulotomy was performed over the anterior head capsule. Sutures were placed to help retract the capsule. At this point the femoral head and neck were identified. With soft tissue protected, oscillating saw was used to make a cut through the femoral neck, the femoral head was now removed. At this point attention was turned to preparation of the acetabulum. The labrum was excised. The acetabulum was sequentially reamed up to size [50]. A Midpines cup was now placed. Fluoroscopy was used to aid in identification of appropriate version. Cup was fully impacted and found to have excellent fit. Hole eliminator was now placed. The liner was now impacted into the cup. At this point the hip was externally rotated. A hook was placed around the proximal femur. The capsule was released off the lateral and medial femur. The hip was now extended and adducted. Retractors were placed around the proximal femur to allow for exposure. A box osteotome was used to remove the lateral cortex of the femoral neck. A broach was used to help lateralize the prosthesis. Canal finder was used to create a path down the canal. Next, the canal was sequentially broached up to size [12]. This was found to be an excellent fit. Calcar planer was placed. A standard head was placed, and the hip was reduced. The hip was found to have excellent stability with good range of motion. The leg lengths were measured under fluoroscopy and found to be equal compared to preoperatively. Trial broach was removed. The Corail stem was opened. Stem was fully impacted into the proximal femur in appropriate version. The femoral head was placed. The hip was again reduced. Fluoroscopy confirmed excellent alignment of prosthesis. The wound was thoroughly irrigated and capsule was closed with #1 Vicryl. The fascia over the tensor fasciae muscle was closed with #1 Vicryl, subcutaneous tissue was closed with 3-0 Vicryl and the skin was closed with chen and Dermabond skin closure. The capsule layers, muscle, and subcutaneous tissue were injected with a mixture of saline and bupivicaine. Dressings were applied. The patient was transferred to Recovery Room in stable condition.
[2017-08-07] MEDS ORDERED: Promethazine 25 MG Supp RECTAL PRN (09:16)
[2017-08-07] MEDS ORDERED: Bisacodyl 10 MG Supp RECTAL PRN (09:16)
[2017-08-07] MEDS ORDERED: Post-op Orders (for Pharmacy) OTHER STA (09:16)
[2017-08-07] MEDS ORDERED: Morphine Inj 4 MG/ML Vial IV.PUSH PRN (09:16)
[2017-08-07] MEDS ORDERED: *Meperidine Inj 25 MG/ML Vial PERIprocedural Use ONLY ONE (09:49)
[2017-08-07] MEDS ORDERED: fentaNYL Citrate Inj 100 MCG/2 ML Ampul ONE (09:50)
[2017-08-07] MEDS: Ketorolac Inj 30 MG/ML (IVP) Vial IV.PUSH SCH ×2 (10:33→18:52)
[2017-08-07] MEDS ORDERED: *morphine SULFATE 4 MG/ML PERIprocedure ONLY ONE (10:40)
--- NOTE | 2017-08-07 11:39 | XR ---
EXAM DATE: 08/07/2017 11:07 AM EDT AGE/SEX: 46 years / Female INDICATIONS: Right total hip arthroplasty. CLINICAL DATA: This is the patient's initial encounter. Patient reports that signs and symptoms have been present for 1 day and indicates a pain score of Nonresponsive. MEDICAL/SURGICAL HISTORY: None. None. COMPARISON: No prior exams available for comparison. FINDINGS: Right hip arthroplasty is in satisfactory position. The alignment is anatomic. CONCLUSION: Postsurgical changes as above. Electronically signed by: Raul Asher MD 08/07/2017 11:38 AM EDT
--- NOTE | 2017-08-07 11:40 | XR ---
EXAM DATE: 08/07/2017 10:57 AM EDT AGE/SEX: 46 years / Female INDICATIONS: Post op right hip. CLINICAL DATA: This is the patient's initial encounter. Patient reports that signs and symptoms have been present for 1 day and indicates a pain score of Nonresponsive. MEDICAL/SURGICAL HISTORY: None. None. COMPARISON: HHPO, HIP RIGHT (AP&LAT 2/3VWS) WO AP PELVIS, 04/07/2017. . FINDINGS: Right hip arthroplasty is in satisfactory position. The alignment is anatomic. CONCLUSION: Postsurgical changes as above. Electronically signed by: Raul Asher MD 08/07/2017 11:39 AM EDT
--- NOTE | 2017-08-07 16:19 | P.PNOP ---
Subjective Interval history: Patient transferred to PACU in stable condition. Physical Exam Vital signs: Vital Signs 08/07/17 07:04 08/07/17 09:43 08/07/17 09:45 Temperature 98.7 F 97.6 F Pulse Rate 70 96 H 97 H Respiratory Rate 20 20 20 Blood Pressure 118/69 169/82 H 156/93 H Pulse Oximetry 100 99 100 08/07/17 10:00 08/07/17 10:15 Temperature Pulse Rate 81 76 Respiratory Rate 16 24 Blood Pressure 138/82 131/76 Pulse Oximetry 96 97 Intake & Output 08/06/17 08/07/17 08/07/17 18:59 06:59 18:59 Intake Total 1564.685 / 1564.685 Output Total 300 / 300 Balance 1264.685 / 1264.685 Weight 97.9 kg Intake: IV 364.685 / 364.685 Cyklokapron Inj 1,468.5 MG In 114.685 / 114.685 NS Inj 100 ML @ 200 mls/hr IV. SIG ONCE CORNELL Rx#:[id number] Vancomycin Inj 1 gm In 200 ml @ 200 / 200 200 mls/hr IV.SIG MOTORIZED SQUAD CAPTAIN CORNELL Rx#:[id number] Ancef 2 GM Premix Inj 2 gm In 50 / 50 50 ml @ 100 mls/hr IV.SIG MOTORIZED SQUAD CAPTAIN CORNELL Rx#:[id number] Anesthesia Amount 1200 / 1200 Output: Estimated Blood Loss 300 / 300 Other: Weight On Admission 97.9 kg - Routine Extremities Exam Comments: Right lower extremity: Clean dry dressings intact. Minimal swelling. Leg lengths near equal with good capillary refills and distal pulses. - Urinary Catheter Management Straight Cath placed during this visit: yes Reason for continuing: Not indwelling catheter Insertion date: 08/07/17 Insertion time: 06:45 Results - Labs Laboratory Results - last 24 hr 08/07/17 08/07/17 06:38 06:50 Urine Color Yellow Urine Clarity Clear Urine pH 6.0 Ur Specific [place] 1.016 Urine Protein Negative Urine Glucose (UA) Negative Urine Ketones Negative Urine Occult Blood Negative Urine Nitrate Negative Urine Bilirubin Negative Urine Urobilinogen Less than 2 Ur Leukocyte Esterase Negative Urine RBC 1 Ur Squamous Epith Cells 1 Micro UA Comment Cath-culture not ind Urine Culture Comments Cath-cult not ind Blood Type O Positive Antibody Screen Negative - Imaging Impressions Hip X-Ray 08/07/17 00:00 CONCLUSION: Postsurgical changes as above. Hip X-Ray 08/07/17 00:00 CONCLUSION: Postsurgical changes as above. Assessment and Plan - Ortho Post Op Day # 0 - Problem List (1) History of total right hip arthroplasty Code(s): Z96.641 - Presence of right artificial hip joint Status: Acute - Assessment and Plan Right total hip arthroplasty POD 0 Weightbearing as tolerated right lower extremity Maintain dressing over incision for 6 days unless saturated or disheveled. Maintain surgical tape over incision line Incentive spirometry 81 mg aspirin twice daily Evaluate for discharge to home versus rehab due to severe osteoarthritis of left hip as well. Physical therapy twice daily
[2017-08-07] MEDS ORDERED: clonazePAM 1 MG Tablet PO PRN (17:10)
[2017-08-07] MEDS: Vancomycin Inj 1 GM/200 ML PIGGYBACK IV.SIG SCH (19:30)
[2017-08-07] MEDS: Senna/Docusate Sodium 8.6/50 MG Tablet PO SCH (21:13)
[2017-08-07] MEDS: Multivitamin/Minerals Therapeutic Tablet PO SCH (21:13)
[2017-08-07] MEDS: Nitrofurantoin Monohydrate-Macrocrystal 100 MG Capsule PO SCH (21:22)
[2017-08-08] MEDS: Nitrofurantoin Monohydrate-Macrocrystal 100 MG Capsule PO SCH (08:27)
[2017-08-08] MEDS: Senna/Docusate Sodium 8.6/50 MG Tablet PO SCH (08:28)
[2017-08-08] MEDS: Multivitamin/Minerals Therapeutic Tablet PO SCH (08:28)
--- NOTE | 2017-08-08 09:36 | P.PNOP ---
Subjective Interval history: Patient comfortable Physical Exam Vital signs: Vital Signs 08/07/17 09:43 08/07/17 09:45 08/07/17 10:00 Temperature 97.6 F Pulse Rate 96 H 97 H 81 Respiratory Rate 20 20 16 Blood Pressure 169/82 H 156/93 H 138/82 Pulse Oximetry 99 100 96 08/07/17 10:15 08/07/17 10:30 08/07/17 10:45 Temperature Pulse Rate 76 71 68 Respiratory Rate 24 20 20 Blood Pressure 131/76 137/73 128/70 Pulse Oximetry 97 99 96 08/07/17 11:00 08/07/17 12:00 08/07/17 13:00 Temperature Pulse Rate 70 70 63 Respiratory Rate 22 23 13 Blood Pressure 123/73 134/60 121/59 L Pulse Oximetry 96 96 96 08/07/17 14:00 08/07/17 15:00 08/07/17 16:00 Temperature 98.1 F 97.9 F Pulse Rate 74 68 71 Respiratory Rate 13 16 16 Blood Pressure 100/54 L 106/61 99/55 L Pulse Oximetry 96 96 93 L 08/07/17 21:52 08/08/17 00:25 08/08/17 03:50 Temperature 98.2 F 98.2 F 98.6 F Pulse Rate 68 71 86 Respiratory Rate 18 18 18 Blood Pressure 103/61 101/56 L 132/73 Pulse Oximetry 97 98 97 Intake & Output 08/07/17 08/08/17 08/08/17 18:59 06:59 18:59 Intake Total 2205.685 / 2205.685 1020 / 1020 Output Total 300 / 300 Balance 1905.685 / 5909.349 4627 / 1020 Intake: IV 364.685 / 364.685 300 / 300 Cyklokapron Inj 1,468.5 MG In 114.685 / 114.685 NS Inj 100 ML @ 200 mls/hr IV. SIG ONCE CORNELL Rx#:[id number] Vancomycin Inj 1 gm In 200 ml @ 200 / 200 200 / 200 200 mls/hr IV.SIG Q12H CORNELL Rx# :[id number] Ancef 2 GM Premix Inj 2 gm In 50 / 50 50 ml @ 100 mls/hr IV.SIG DIRECTOR STRATEGIC ACCOUNT MANAGEMENT CORNELL Rx#:[id number] Ancef Inj 1,000 MG In NS Inj 100 / 100 100 ML @ 200 mls/hr IV.SIG Q6H CORNELL Rx#:[id number] Oral 240 / 240 720 / 720 Anesthesia Amount 1200 / 1200 Other 401 / 401 Output: Urine 0 / 0 Estimated Blood Loss 300 / 300 Other: # Voids 3 Date of Last Bowel Movement 08/06/17 # Bowel Movements 0 - Urinary Catheter Management Straight Cath placed during this visit: yes Reason for continuing: Not indwelling catheter Insertion date: 08/07/17 Insertion time: 06:45 Results - Imaging Impressions Hip X-Ray 08/07/17 00:00 CONCLUSION: Postsurgical changes as above. Hip X-Ray 08/07/17 00:00 CONCLUSION: Postsurgical changes as above. Assessment and Plan - Problem List (1) History of total right hip arthroplasty Code(s): Z96.641 - Presence of right artificial hip joint Status: Acute - Assessment and Plan Right total hip arthroplasty POD 1 Weightbearing as tolerated right lower extremity Maintain dressing over incision for 6 days unless saturated or disheveled. Maintain surgical tape over incision line Incentive spirometry 81 mg aspirin twice daily Evaluate for discharge to home today Physical therapy with [facility]
--- NOTE | 2017-08-08 09:56 | P.DCO ---
- Physical Therapy Physical Therapy: Gait training, Safety evaluation Hip: Total hip, Protocol: Right, Progress to weight bearing Right Lower Extremity Weight Bearing: Weight bearing as tolerated - Nursing Dressing changes: Daily dressing change (beginning08/14/17. remove dressing leaving surgical tape in place, dress with primapore), Coverderm/Primapore - Certification Need for Home Health services: I have seen patient Jessica Lewis on 08/08/17. My clinical findings support the need for the requested home health care services because: Need for Home Health Services: Limited mobility due to disease progression Homebound Certification: I certify that my clinical findings support that this patient is homebound because: Homebound Certification: Post-op weakness
[2017-08-08] MEDS: Vancomycin Inj 1 GM/200 ML PIGGYBACK IV.SIG SCH (10:10)
[2017-08-08] MEDS ORDERED: Neostigmine Inj 5 MG/5 ML Syringe IV.PUSH ONE (12:13)
[2017-08-08] MEDS ORDERED: Glycopyrrolate Inj 1 MG/5 ML Syringe IV.PUSH ONE (12:13)
[2017-08-08] MEDS ORDERED: Phenylephrine/NS 1000 MCG/10ML Syringe IV.PUSH ONE (12:13)
[2017-08-08] MEDS ORDERED: Lidocaine PF 1% Inj 5 ML Syringe INFILTRATN ONE (12:13)
== END 2017-08-08 12:14 | disposition home health service (06) ==
LOC: HSDI 06:06 → N06 15:37
PROVIDERS: ADMIT Orthopaedic Surgery Orthopaedic Trauma; ATTEND Orthopaedic Surgery Orthopaedic Trauma
DX: M16.0 Bilateral primary osteoarthritis of hip

== ENCOUNTER 2017-09-25 07:37 | Inpatient (IN) ==
[2017-09-25] MEDS ORDERED: Gabapentin 300 MG Capsule PO ONE (08:14)
[2017-09-25] MEDS ORDERED: Celecoxib 200 MG Capsule PO ONE (08:14)
[2017-09-25] MEDS ORDERED: Dexamethasone Inj 20 MG/5 ML Vial IV.PUSH ONE (08:14)
[2017-09-25] MEDS ORDERED: Famotidine PF Inj 20 MG/2 ML Vial IV.PUSH ONE (08:14)
[2017-09-25] MEDS ORDERED: Chlorhexidine 4% Topical 120 APPLIC/120 ML Bottle TOPICAL SCH (08:15)
[2017-09-25] MEDS ORDERED: Metoprolol Tartrate 25 MG Tablet PO SCH (08:15)
[2017-09-25] MEDS ORDERED: Bupivacaine/Epi PF 0.25% Inj 20 ML, Bupivacaine Liposo PF 1.3% Inj 20 ML, Sodium Chlor ... P-ARTICULR SCH ×2 (08:15)
[2017-09-25] MEDS ORDERED: Chlorhexidine Gluconate 2% 1 Pack (2 Cloths) TOPICAL SCH (08:15)
[2017-09-25] MEDS ORDERED: TRANEXAMIC ACID IV.SIG SCH (09:00)
[2017-09-25] MEDS ORDERED: Sodium Chlor 0.9% Inj 500 ML IV.SIG SCH (09:00)
[2017-09-25] MEDS ORDERED: SODIUM CHLOR 0.9% IV.SIG SCH (09:00)
[2017-09-25] MEDS: Vancomycin Inj 1,000 MG in Sodium Chlor 0.9% Inj 250 ML IV.SIG SCH ×2 (11:35→23:02)
[2017-09-25] MEDS ORDERED: Glycopyrrolate Inj 1 MG/5 ML Syringe IV.PUSH ONE (12:00)
[2017-09-25] MEDS ORDERED: Sodium Chlor 0.9% Inj 250 ML IV.SIG ONE (12:00)
[2017-09-25] MEDS ORDERED: ceFAZolin 2 GM Premix Inj 2 GM/50 ML PIGGYBACK IV.SIG ONE (12:00)
[2017-09-25] MEDS ORDERED: Neostigmine Inj 5 MG/5 ML Syringe IV.PUSH ONE (12:00)
[2017-09-25] MEDS ORDERED: Lidocaine PF 1% Inj 5 ML Syringe INFILTRATN ONE (12:00)
--- NOTE | 2017-09-25 13:13 | P.DCO ---
- Physical Therapy Physical Therapy: Gait training Hip: Total hip, Protocol: Left, Progress to weight bearing Left Lower Extremity Weight Bearing: Weight bearing as tolerated Additional instructions: no active abduction of left leg - Nursing Dressing changes: Do not change dressing (x 6 days), Daily dressing change ( beginning on POD 7 with coverderm/primapore. maintain surgical mesh over incision) - Certification Need for Home Health services: I have seen patient Jessica Lewis on 09/25/17. My clinical findings support the need for the requested home health care services because: Need for Home Health Services: Limited mobility due to disease progression Homebound Certification: I certify that my clinical findings support that this patient is homebound because: Homebound Certification: Post-op weakness
[2017-09-25] MEDS ORDERED: Post-op Orders (for Pharmacy) OTHER STA (13:15)
[2017-09-25] MEDS ORDERED: Bisacodyl 10 MG Supp RECTAL PRN (13:15)
[2017-09-25] MEDS ORDERED: Promethazine 25 MG Supp RECTAL PRN (13:15)
[2017-09-25] MEDS ORDERED: Morphine Inj 4 MG/ML Vial IV.PUSH PRN (13:15)
--- NOTE | 2017-09-25 13:20 | P.OP ---
- Preoperative Diagnosis (1) Primary osteoarthritis of left hip Date of procedure: 09/25/17 Procedure: Left total hip arthroplasty by anterior approach Surgeon: Paul Bucio MD [employer] Parking Attendant: JANES Barker PA-C The surgical procedure was assisted by my physician telecom assistant. My P.A. presence was necessary throughout this case for the manipulation and positioning of the surgical extremity. My P.A. was assisting me throughout the duration of this procedure. The skill set of a physician telecom assistant was medically necessary to complete this procedure. During the surgical case the surgical dressing maker was working at the back table and the physician telecom assistant was directly assisting me. Operation and Findings: PLAN OF ACTIVITY Weight bear as tolerated. IMPLANTS USED DePuy Corail size 13 collared stem with a size [50] Roxobel Gription cup, [50/ 32] Altrx poly liner, and a [32 +5] Biolox ceramic head. DETAILS OF PROCEDURE: This patient has a long history of hip pain. Patient was found to have severe osteoarthritis. The patient had radiographic evidence of joint space narrowing with icod-ve-ceci arthritis and osteophytes around the acetabulum as well as the femoral head. There was also some cystic changes. The patient failed conservative treatment with pain medications, anti-inflammatories, physical therapy, assistive devices including a cane, as well as therapeutic injection of the hip. Patient's hip arthritis was limiting his ability to ambulate and perform activities of daily living. The patient wished to proceed with surgery and informed consent was obtained. Operative site was marked. I discussed both posterior approach and anterior approach with the patient and decision was made for anterior approach. Patient was brought to OR and placed on OR table. IV sedation and general anesthesia was administered by anesthesiologist. Patient positioned on a Halima table and was given IV antibiotics. Time-out procedure was performed. The hip and thigh were prepped with alcohol followed by Hibiclens. The thigh was draped in the usual sterile fashion. Clean Air Suite was used for this procedure. The procedure began with a 5-inch incision over the anterolateral thigh. Subcutaneous tissue was dissected with Bovie. The fascia over the tensa fasciae latae was incised. Care was taken to avoid injury to the lateral femoral cutaneous nerve. The tensor muscle was retracted laterally. Sartorius was retracted medially. Retractors were now placed. The reflected head of the rectus is now elevated. A capsulotomy was performed over the anterior head capsule. Sutures were placed to help retract the capsule. At this point the femoral head and neck were identified. With soft tissue protected, oscillating saw was used to make a cut through the femoral neck, the femoral head was now removed. At this point attention was turned to preparation of the acetabulum. The labrum was excised. The acetabulum was sequentially reamed up to size [50]. A Roxobel cup was now placed. Fluoroscopy was used to aid in identification of appropriate version. Cup was fully impacted and found to have excellent fit. Hole eliminator was now placed. The liner was now impacted into the cup. At this point the hip was externally rotated. A hook was placed around the proximal femur. The capsule was released off the lateral and medial femur. The hip was now extended and adducted. Retractors were placed around the proximal femur to allow for exposure. A box osteotome was used to remove the lateral cortex of the femoral neck. A broach was used to help lateralize the prosthesis. Canal finder was used to create a path down the canal. Next, the canal was sequentially broached up to size [13]. This was found to be an excellent fit. Calcar planer was placed. A standard head was placed, and the hip was reduced. The hip was found to have excellent stability with good range of motion. The leg lengths were measured under fluoroscopy and found to be equal compared to preoperatively. Trial broach was removed. The Corail stem was opened. Stem was fully impacted into the proximal femur in appropriate version. The femoral head was placed. The hip was again reduced. Fluoroscopy confirmed excellent alignment of prosthesis. The wound was thoroughly irrigated and capsule was closed with #1 Vicryl. The fascia over the tensor fasciae muscle was closed with #1 Vicryl, subcutaneous tissue was closed with 3-0 Vicryl and the skin was closed with chen and Dermabond skin closure. The capsule layers, muscle, and subcutaneous tissue were injected with a mixture of saline and bupivicaine. Dressings were applied. The patient was transferred to Recovery Room in stable condition.
[2017-09-25] MEDS ORDERED: fentaNYL Citrate Inj 100 MCG/2 ML Ampul ONE ×2 (13:49)
[2017-09-25] MEDS ORDERED: Morphine Inj 4 MG/ML Vial ONE (13:50)
[2017-09-25] MEDS ORDERED: Tranexamic Acid Inj 1,000 MG in Sodium Chlor 0.9% Inj 100 ML IV.SIG SCH (14:00)
--- NOTE | 2017-09-25 14:20 | XR ---
EXAM DATE: 09/25/2017 2:10 PM EDT AGE/SEX: 46 years / Female INDICATIONS: Left total hip arthroplasty. CLINICAL DATA: This is the patient's initial encounter. Patient reports that signs and symptoms have been present for 1 day and indicates a pain score of Nonresponsive. MEDICAL/SURGICAL HISTORY: None. . Right total hip arthroplasty. COMPARISON: [facility], HIP LEFT (AP&LAT /3VWS) W AP PELVIS, 04/07/2017. . FINDINGS: 2 spot fluoroscopic images of the left hip demonstrates a left total hip arthroplasty hardware. The c omponents are noncemented and there is a medial collar on the femoral component. No unexpected findin g is identified. CONCLUSION: Expected changes following left total hip arthroplasty. Electronically signed by: Eh Castañeda MD 09/25/2017 2:18 PM EDT
[2017-09-25] MEDS: Calcium/Vitamin D 250/125 MG Tablet PO SCH (17:24)
[2017-09-25] MEDS: Celecoxib 200 MG Capsule PO SCH (21:16)
[2017-09-25] MEDS: Senna/Docusate Sodium 8.6/50 MG Tablet PO SCH (21:18)
[2017-09-25] MEDS: ceFAZolin Inj 2,000 MG in Sodium Chlor 0.9% Inj 80 ML IV.SIG SCH (22:14)
[2017-09-26] MEDS: ceFAZolin Inj 2,000 MG in Sodium Chlor 0.9% Inj 80 ML IV.SIG SCH ×2 (03:36→11:11)
--- NOTE | 2017-09-26 06:34 | P.PNOP ---
Subjective Interval history: Doing well status post surgery POD 1. States that this hip has less pain than her previous hip replacement on the opposite side. Physical Exam Vital signs: Vital Signs 09/25/17 08:35 09/25/17 13:44 09/25/17 13:45 Temperature 97.8 F 98.1 F Pulse Rate 70 75 82 Respiratory Rate 16 20 18 Blood Pressure 138/78 156/72 H 151/70 H Pulse Oximetry 100 99 100 09/25/17 14:00 09/25/17 14:15 09/25/17 14:30 Temperature Pulse Rate 65 62 63 Respiratory Rate 13 12 12 Blood Pressure 121/59 L 112/59 L 119/60 Pulse Oximetry 95 97 98 09/25/17 14:47 09/25/17 15:00 09/25/17 15:30 Temperature Pulse Rate 60 59 L Respiratory Rate 13 12 Blood Pressure 112/59 L 112/62 Pulse Oximetry 98 98 99 09/25/17 15:35 09/25/17 16:00 09/25/17 17:00 Temperature 97.6 F Pulse Rate 62 63 Respiratory Rate 15 18 Blood Pressure 113/60 125/62 Pulse Oximetry 98 98 98 09/25/17 18:25 09/25/17 20:00 09/25/17 21:47 Temperature 97.2 F L 98.1 F Pulse Rate 87 73 Respiratory Rate 18 18 18 Blood Pressure 141/72 H 113/57 L Pulse Oximetry 97 100 09/26/17 00:00 09/26/17 01:23 09/26/17 04:00 Temperature 98.3 F 98.2 F Pulse Rate 80 88 Respiratory Rate 18 18 17 Blood Pressure 114/54 L 105/51 L Pulse Oximetry 99 99 Intake & Output 09/25/17 09/25/17 09/26/17 06:59 18:59 06:59 Intake Total 1775.14 / 1775.14 580 / 580 Output Total 200 / 200 Balance 1575.14 / 1575.14 580 / 580 Weight 100.9 kg Intake: IV 1735.14 / 1735.14 100 / 100 LR 1000 mL Inj 1,000 ML @ 80 220 / 220 mls/hr IV.CONT .[id number] [facility] Rx# :[id number] Ofirmev Inj 1,000 mg In 100 ml 100 / 100 @ 400 mls/hr IV.SIG Q12H [facility] Rx #:[id number] LR 1000 mL Inj 1,000 ML @ 30 1000 / 1000 mls/hr IV.SIG .Q24H [facility] Rx#: [id number] Cyklokapron Inj 1,514 MG In NS 115.14 / 115.14 Inj 100 ML @ 200 mls/hr IV.SIG ONCE [facility] Rx#:[id number] Vancomycin Inj 1,000 MG In NS 250 / 250 Inj 250 ML @ 250 mls/hr IV.SIG [employer] Rx#:[id number] Ancef 2 GM Premix Inj 2 gm In 50 / 50 50 ml @ 100 mls/hr IV.SIG ONCE ONE Rx#:[id number] Ancef Inj 2,000 MG In NS Inj 80 100 / 100 ML @ 200 mls/hr IV.SIG Q8H [facility] Rx#:[id number] Oral 40 / 40 480 / 480 Anesthesia Amount 0 / 0 Output: Estimated Blood Loss 200 / 200 Other: Date of Last Bowel Movement 09/24/17 09/24/17 Weight On Admission 100.9 kg Narrative: Left lower extremity: Clean dry dressings intact. Minimal swelling. She has mild tenderness with range of motion of the hip. No tenderness with range of motion knee or ankle. Distally intact sensation with active dorsiflexion plantar flexion of foot Results - Labs Laboratory Results - last 24 hr 09/25/17 08:24 Blood Type O Positive Blood Type Recheck Not needed Antibody Screen Negative - Imaging Impressions Hip X-Ray 09/25/17 00:00 CONCLUSION: Expected changes following left total hip arthroplasty. Assessment and Plan - Problem List (1) History of total left hip arthroplasty Code(s): Z96.642 - Presence of left artificial hip joint Status: Acute - Assessment and Plan Left total hip arthroplasty POD 1 Physical therapy weightbearing as tolerated with no active abduction of the hip Maintain dressing unless it becomes saturated Plan for discharge to home today Incentive spirometry Aspirin twice daily 81 mg Follow-up with Dr. Miller or PA in 2 weeks
[2017-09-26 08:18] LABS: Hematocrit 29.8 % (35.0-46.0); Hemoglobin 10.2 gm/dL (11.6-15.3)
[2017-09-26] MEDS: Calcium/Vitamin D 250/125 MG Tablet PO SCH (08:59)
[2017-09-26] MEDS: Senna/Docusate Sodium 8.6/50 MG Tablet PO SCH (08:59)
[2017-09-26] MEDS: Vancomycin Inj 1,000 MG in Sodium Chlor 0.9% Inj 250 ML IV.SIG SCH ×2 (09:59→10:00)
[2017-09-26] MEDS: Celecoxib 200 MG Capsule PO SCH (10:48)
== END 2017-09-26 12:41 | disposition home health service (06) ==
LOC: HSDI 07:37 → N06 17:19
PROVIDERS: ADMIT Orthopaedic Surgery Orthopaedic Trauma; ATTEND Orthopaedic Surgery Orthopaedic Trauma